=== PATIENT | male | born 1960 | race Caucasian/White ===

== ENCOUNTER 2024-05-14 07:32 | Outpatient (OUT) | payer SELFPAY | END 2024-05-14 07:33 | disposition home or self-care (01) | LOC: PST 07:32 | PROVIDERS: Family Provider Family Medicine; Visit Provider Urology | DX: Z01.818 Encounter for other preprocedural examination (principal); D49.4 Neoplasm of unspecified behavior of bladder; Z85.51 Personal history of malignant neoplasm of bladder; F41.9 Anxiety disorder, unspecified; I10 Essential (primary) hypertension; E78.5 Hyperlipidemia, unspecified; F32.A Depression, unspecified; N40.0 Benign prostatic hyperplasia without lower urinary tract symptoms; R56.9 Unspecified convulsions ==

== ENCOUNTER 2024-05-15 08:44 | Day surgery (SDC) | payer MEDICARE, SELFPAY ==
[2024-05-15] VITALS (13 sets, daily range): BP systolic 133–168; BP diastolic 59–92; PULSE 68–84; TEMP 36.3–36.6; O2SAT 92–99; BMI 34.0
[2024-05-15] MEDS: LACTATED RINGER'S SOLUTION 1,000 ML 50 ML IV ×2 (09:38→10:53)
[2024-05-15] MEDS: LEVOFLOXACIN IN DEXTROSE 5 % 500 MG/100 ML PREMIX 100 MG IV (10:23)
--- NOTE | 2024-05-15 11:00 | P.URON_ITS ---
Urology Surgery Operative Note Operative Note Procedure Date: 05/15/24 Time Out Performed: yes Pre-op Diagnosis: Bladder tumors Post-op Diagnosis: same as pre-op Procedures performed: 1. Cystoscopy. 2. 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 On surveillance cystoscopy he was found to have small sheets of papillary tumors along the trigone towards the bladder neck. He now presents for cystoscopy and transurethral resection of these bladder tumors. He has signed an informed consent after risks were explained. Detailed description of Procedure: The patient was brought to the operating room and placed on the operating room table in the supine position. SCDs were placed on the lower extremities and turned on and functioning during the entire case. Timeout was done by all parties in the room. We all agreed upon the patient's identification and the planned procedures for this patient. Genn. anesthesia was then administered. The patient was then repositioned into the modified dorsal lithotomy position. All pressure points were satisfactorily padded. Genitalia were sterilely prepped and draped in usual fashion. I started by passing a 26 [place] Dana resectoscope with a standard bipolar loop electrode per urethra and into the bladder. Careful panendoscopy revealed these previously known tumors. These were small but papillary and along the trigone and towards the bladder neck. The ureters were not involved. I then uniformly and deeply resected these tumors. The resection bed was coagulated. The Ilich was used to get all the tumor pieces out and these were sent for permanent sections. Upon completion, there was no evidence of any tumors remaining. The ureters were effluxing clear urine. Since I only resected about 3 cm near the bladder neck, I elected not to place a Farrell catheter. The patient was then transferred to a rsalem bed and wheeled to PACU in stable condition.
== END 2024-05-15 12:02 | disposition home or self-care (01) ==
PROVIDERS: Family Provider Family Medicine; Visit Provider Urology
PROC: (CPT 52234; principal; 2024-05-15 10:10)
DX: N30.80 Other cystitis without hematuria (principal); F32.A Depression, unspecified; F41.9 Anxiety disorder, unspecified; Z85.51 Personal history of malignant neoplasm of bladder; I10 Essential (primary) hypertension; E78.00 Pure hypercholesterolemia, unspecified; G40.909 Epilepsy, unspecified, not intractable, without status epilepticus; Z87.891 Personal history of nicotine dependence; N40.1 Benign prostatic hyperplasia with lower urinary tract symptoms; E66.01 Morbid (severe) obesity due to excess calories; Z68.33 Body mass index [BMI] 33.0-33.9, adult; J44.9 Chronic obstructive pulmonary disease, unspecified; K21.9 Gastro-esophageal reflux disease without esophagitis
CPT/HCPCS: 52234; J2704; J3010